=== PATIENT | female | born 1970 | race Caucasian/White ===

== ENCOUNTER 2023-07-09 07:05 | Observation (INO) ==
--- NOTE | 2023-07-07 12:51 | Anesthesiology Consultation ---
Date of Service July 07, 2023 Assessment & Plan (1) Encounter for pre-operative examination: Chart Review Chart Review: Acceptable Risk for Surgery and Patient NOT seen in Pre Admission Testing Consults Requested none History Surgery Operation Date: 07/09/23 10:35 Proposed Procedures p Total Laparoscopic Hysterectomy, Bilateral Salpingectomy, Possible Bilateral Oophorectomy, Cystoscopy, Possible Laparotomy - Sher Laird MD Height/Weight Height: 5 ft 5 in Weight: 83.915 kg Allergies Allergy/AdvReac Type Severity Reaction Status Date / Time Bactrim Allergy Intermediate rash Verified 01/08/16 14:20 latex Allergy Intermediate Rash Verified 07/05/23 12:20 sulfamethoxazole [Bactrim] Allergy Intermediate rash Verified 07/05/23 12:20 trimethoprim [Bactrim] Allergy Intermediate rash Verified 07/05/23 12:20 avocado Allergy Unknown NAUSEA Verified 07/05/23 12:20 adhesive AdvReac Mild TAPE - Verified 07/05/23 12:20 REDNESS Medications Home Medications Medication Instructions Recorded Confirmed Last Taken multivitamin 1 tab PO QAM 07/05/23 07/05/23 Unknown propranolol 10 mg tablet 10 mg PO QAM 07/05/23 07/05/23 Unknown semaglutide 0.25 mg or 0.5 mg (2 0.5 mg subcut WK 07/05/23 07/05/23 Unknown mg/3 mL) subcutaneous pen injector (Ozempic) Past Medical History Medical History Overweight Ozempic for this not DM Perimenopausal propranolol for this SVT (supraventricular tachycardia) had ablation in 2017 Past Surgical History Surgical History History of appendectomy History of cardiac radiofrequency ablation 2017 for SVT > DC'ed from cardio History of colonoscopy History of endometrial ablation History of tooth extraction with dental implant Social History Smoking Status: Never smoker Do You Dip or Chew Tobacco: No Hx Alcohol Use: Yes Alcohol type: beer, wine and hard liquor alcohol intake frequency: a few times a month Hx Substance Use: No substance use type: does not use Testing Electrocardiogram Date: 06/11/23 Findings: + NSR @ Echocardiogram Date: 12/15/22 EF: 60-65 LV Function: normal
[~2023-07-09 07:05] MED LIST: LACTATED RINGER'S 1,000 ML IV SCH; LR 15ML/HR IV SCH; ceFAZolin 2000MG 2,000 MG/15 ML SYR IV SCH
[2023-07-09] MEDS ORDERED: HYDROmorphone INJ 2 MG/ML SYR/VIAL IV PRN (07:44)
[2023-07-09] MEDS ORDERED: ONDANSETRON INJ 2 MG/ML 2 ML VIAL IV PRN ×2 (07:44→11:20)
[2023-07-09] MEDS ORDERED: ACETAMINOPHEN 500 MG TAB PO STA (07:44)
[2023-07-09] MEDS ORDERED: SCOPOLAMINE 1 MG TDSY TD STA (07:44)
[2023-07-09] MEDS ORDERED: ePHEDrine sulfate 50 MG/ML AMP IV PRN (07:44)
[2023-07-09] MEDS ORDERED: ATROPINE SULFATE 0.1 MG/ML 10ML SYR IV PRN (07:44)
[2023-07-09] MEDS ORDERED: fentaNYL citrate PF 100 MCG/2 ML VIAL ONE (07:49)
[2023-07-09] MEDS ORDERED: MIDAZOLAM HCL 1 MG/ML 2ML VIAL ONE (08:07)
--- NOTE | 2023-07-09 08:15 | History & Physical Bridge Note ---
Date of Service July 09, 2023 History & Physical Bridge Note I have examined the patient, reviewed the History & Physical and in the interval since the performance of the History & Physical I have noted the following changes of clinical significance: no changes noted
[2023-07-09] MEDS ORDERED: BUPIVACAINE/EPINEPHRINE 0.5% MPF 1:200,000 30 ML VIAL ONE (08:20)
[2023-07-09] MEDS ORDERED: DEXAMETHASONE SOD INJ 4 MG/ML VIAL ONE (09:20)
[2023-07-09] MEDS ORDERED: KETOROLAC 30 MG/ML VIAL ONE (09:20)
[2023-07-09] MEDS ORDERED: ONDANSETRON INJ 2 MG/ML 2 ML VIAL ONE (09:20)
[2023-07-09] MEDS ORDERED: ROCURONIUM BROMIDE 10 MG/ML 5 ML VIAL IV ONE (09:20)
[2023-07-09] MEDS ORDERED: PROPOFOL IV EMULSION 10 MG/ML 20 ML VIAL IV ONE (09:20)
[2023-07-09] MEDS ORDERED: SUGAMMADEX SODIUM 200 MG/2 ML VIAL IV ONE (09:21)
[2023-07-09] MEDS ORDERED: FLOSEAL HEMOSTATIC MATRIX 10ML TOP ONE (09:28)
[2023-07-09] MEDS ORDERED: HYDROmorphone INJ 2 MG/ML SYR/VIAL ONE (09:49)
[2023-07-09] MEDS ORDERED: ZOLPIDEM TARTRATE 5 MG TAB PO PRN (11:20)
[2023-07-09] MEDS ORDERED: MAGNESIUM HYDROXIDE SUSP 30 ML UDC PO PRN (11:20)
[2023-07-09] MEDS ORDERED: LACTATED RINGER'S 1,000 ML IV SCH (11:30)
--- NOTE | 2023-07-09 11:33 | Operative Report ---
[facility] Post Operative Report Pre & Post Diagnosis Operation Date: 07/09/23 08:25 Pre-Op Diagnosis: Menorrhagia, Failed Endometrial Ablation, Fibroid Post-Op Diagnosis: Menorrhagia, Failed Endometrial Ablation, Fibroid I identified the patient and participated in the time-out.: Yes Procedure Operation Date: 07/09/23 08:25 Actual Procedures p Total Laparoscopic Hysterectomy, Bilateral Salpingectomy, Cystoscopy(Not Applicable) - Sher Laird MD Surgeon Sher Laird MD Watch Manufacturing Supervisor Isaac zafar Estimated Blood Loss 10 Findings Consistent with Post-Op Diagnosis 12 week size fibroid uterus endometrial implants in cul de sac Nml left ovary and tube Rt ovarian has clear filled cyst Fluids IVF:1600 Urine: 200 EBL; 10 Specimens uterus and cervix left an right Fallopian tubes Drains none Anesthesia Type General Complications none Indications Fibroid uterus menorrhagia failed endometrial ablation Description of Procedure FINDINGS: DESCRIPTION OF PROCEDURE: The patient was prepped and draped in normal sterile fashion in the dorsal lithotomy position. Lopez catheter was placed without difficulty. An Micrima uterine manipulator was placed in the uterus to help with colpotomy. Attention was paid to the abdominal part of the procedure where a supraumbilical incision was made and carried down to the fascia. Mohit was used to grab the fascia. Veress needle was introduced into the abdomen at a 45-degree angle while tenting up the abdomen. Intra-abdominal placement was confirmed with a water-filled syringe. A water drop and suction test was performed. The abdomen was insufflated with CO2 gas. The Veress needle was removed and a 5 mm non bladed trocar was attached to a laparoscope was introduced into the abdomen under direct visualization. This was a non bladed trocar. Once inside the abdomen, laparoscope was repositioned. Inspection of the abdomen shows the fin dings as dictated above. Three more accessory ports were placed, two 5 mm accessory ports were placed in the lower abdomen on the contralateral side, in addition, an 11 mm trocar was placed on the left upper quadrant. General inspection of the abdomen and pelvis was performed as dictated above. . . Left and right fallopian tubes, the ureters, uterosacrals, bowels, appendix were examined and identified. LigaSure was passed through the left accessory port. The fallopian tube was identified and grabbed 4 cm from the cornua of the uterus with the LigaSure and transected. This was followed by opening of the left anterior leaf of the broad ligament. This allowed for fenestration of the posterior left broad ligament. The mid-section of the left fallopian tube, utero-ovarian and meso-ovarian pedicles were transected as well. Same procedure was performed on the contralateral side. The anterior broad ligament dissection was carried to the mid-section of the vesicouterine peritoneum over the bladder using the Harmonic scalpel. Same procedure was carried out on the contralateral side.The Myoma screw is used for retraction. posterior broad ligament peritoneum was carefully dissected also from both sides over the uterosacral arch in order to displace the ureters laterally. Using traction and countertraction, the [place] retractor and irrigation probe was used to further dissect the bladder off the lower segment of the uterus. Bladder pillars and pubovesical fascia was dissected as well. Harmonic scalpel was used to obtain hemostasis where needed. Uterine manipulator was now palpable over the vaginal tissue. The right uterine pedicles were skeletonized and coagulated with the LigaSure. Good hemostasis was obtained. Same procedure was performed on the contralateral side. Cardinal ligaments were transected on both sides. Once good hemostasis was obtained, colpotomy was performed using the LigaSure hook from both sides. Uterus was removed through the vagina while still attached to the uterine manipulator. The bulb was attached to the uterine manipulator was reinserted into the vagina to establish pneumoperitoneum. With a grasper, the remaining section of the left ovary and tube were positioned anteromedially. Both fallopian tubes was removed. Same procedure was performed on both sides. EndoStitch closure device was passed through the 11 mm port on the left. Using the [place] grasper for traction, colpotomy closure was performed. The uterosacral ligaments incorporated into the closure in order to decrease the risk of prolapse. Lapro ties were used with the EndoStitch. The 11-mm trocar site was closed with a Dash-Correa under direct visualization. Attention was paid to the cystoscopy part of the procedure where a cystoscope was introduced into the bladder. There are no sutures seen in the bladder. There were no gross blood seen in the bladder as well. The bubble sign is noted showing the bladder was a close cavity. Both ureters were seen and there was efflux from both uterus. The skin incisions are closed with Dermabond, except for the 11-mm trocar site, which was closed with 4-0 Monocryl. The patient was returned to recovery in stable condition. Inspection of the vagina shows the vaginal cuff was intact. All instruments were removed from the vagina and the bladder and accounted for x2. Watch Manufacturing Supervisor was necessary for retraction and manipulation of instruments in order to provide for a safe operation I attest to the content of the Intraoperative Record and any orders documented therein. Any exceptions are noted below.
--- NOTE | 2023-07-09 12:43 | Anesthesiology Progress Note ---
Date of Service July 09, 2023 Anesthesia Post Procedure Vital Signs Vital Signs: Temp Pulse Pulse Resp BP BP Pulse Ox 07/09/23 11:45 78 14 130/79 98 07/09/23 11:35 36.3 C L 80 14 129/57 L 99 07/09/23 11:25 90 14 128/68 96 07/09/23 11:15 84 14 117/73 100 07/09/23 11:05 36.4 C L 91 H 14 115/81 100 07/09/23 07:26 36.6 C 94 H 20 143/80 H 97 O2 Del Method O2 Flow Rate 07/09/23 11:45 Nasal Cannula 2 07/09/23 11:35 Nasal Cannula 2 07/09/23 11:25 Nasal Cannula 2 07/09/23 11:15 Oxymask 6 07/09/23 11:05 Oxymask 6 07/09/23 07:26 Room Air Transfer of Care Handoff Completed per policy Notes Mental Status: alert / awake / arousable and participated in evaluation Nausea / Vomiting: adequately controlled Pain: adequately controlled Airway Patency, RR, SpO2: stable & adequate BP & HR: stable & adequate Hydration State: stable & adequate Anesthetic Complications: no major complications apparent and Pt Satisfied with anesthetic care
[2023-07-09] MEDS: SIMETHICONE 80 MG CHEW PO PRN (13:10)
[2023-07-09] MEDS: oxyCODONE/ACETAMINOPHEN 5mg/325mg TAB PO PRN ×2 (13:10→19:47)
[2023-07-09] MEDS: CHECK SCOPOLAMINE PATCH PLACEMENT SCH (18:36)
[2023-07-09] MEDS: IBUPROFEN 600 MG TAB PO PRN (19:45)
[2023-07-09] MEDS: DOCUSATE SODIUM 100 MG CAP PO SCH (21:00)
[2023-07-10] MEDS: IBUPROFEN 600 MG TAB PO PRN ×3 (00:11→09:17)
[2023-07-10] MEDS: oxyCODONE/ACETAMINOPHEN 5mg/325mg TAB PO PRN ×3 (00:11→09:17)
[2023-07-10] MEDS: SIMETHICONE 80 MG CHEW PO PRN (06:42)
[2023-07-10 07:23] LABS: Basophils # (auto) 0.01 K/uL (0-0.2); Basophils % (auto) 0.1 %; Eosinophils # (auto) 0.01 K/uL (0-0.50); Eosinophils % (auto) 0.1 %; Hematocrit (blood only) 37.1 % (37.0-47.0); Hemoglobin 12.8 g/dl (12.0-16.0); Immature Granulocytes # (auto) 0.04 K/uL (0.01-0.20); Immature Granulocytes % (auto) 0.4 %; Lymphocytes # (auto) 2.07 K/uL (1.2-3.4); Mean Corpuscular Hemoglobin 31.8 pg (25.0-34.0); Mean Corpuscular Hgb Conc 34.5 g/dL (32.0-36.0); Mean Corpuscular Volume 92.3 fL (80.0-100.0); Mean Platelet Volume 8.8 fL (9.4-12.4); Monocytes # (auto) 0.75 K/uL (0.11-0.59); Monocytes % (auto) 6.9 %; Neutrophils # (auto) 8.04 K/uL (1.40-6.50); Neutrophils % (auto) 73.5 %; Platelet Count 226 K/uL (130-400); RDW Coefficient of Variation 11.9 % (11.5-14.5); RDW Standard Deviation 40.2 fL (36.4-46.3); Red Blood Count 4.02 M/uL (4.20-5.40); White Blood Count 10.92 K/ul (4.8-10.8)
[2023-07-10 07:24] LABS: BUN Creatinine Ratio 16.5 (10-20); Calcium 8.8 mg/dl (8.6-10.3); Creatinine Clr Calc Pharmacy 89.1 ml/min; Est GFR (African American) 99.8 ml/min; Est GFR (Non-African American) 86.1 ml/min
[2023-07-10] MEDS: CHECK SCOPOLAMINE PATCH PLACEMENT SCH ×2 (08:44)
[2023-07-10] MEDS: DOCUSATE SODIUM 100 MG CAP PO SCH (08:44)
--- NOTE | 2023-07-10 08:59 | Obstetrical Progress Note ---
Date of Service July 10, 2023 Assessment & Plan (1) S/P laparoscopic hysterectomy: TLH pt doing well dsich home with instructions Subjective Review of Systems All systems reviewed & are unremarkable except as noted in HPI & below Physical Exam Constitutional WD/WN, vitals as above Eyes PERRL, conjunctivae normal, anicteric sclerae ENMT external ear and nose normal, oropharynx normal Neck trachea midline, no thyromegaly Respiratory normal respiratory effort, lungs clear to auscultation Cardiovascular RRR, no murmur, no edema Chest (Breasts) normal inspection/palpation of breasts Gastrointestinal (Abdomen) normal bowel sounds, soft, nontender, no hepatosplenomegaly Musculoskeletal no cyanosis or clubbing, extremities motor strength 5/5 Skin + incision (Incision clean,dry and intact) Neurologic patellar DTR's 2+ bilat, sensation intact Psychiatric A+Ox3, euthymic affect Genitourinary no vaginal lesions, no adnexal mass Lymphatic no cervical or axillary lymphadenopathy Results & Data Vital Signs (Past 12 Hours) Vital Signs Temp Pulse Pulse Resp BP Pulse Ox O2 Del Method 07/10/23 08:11 36.6 C 78 18 111/64 97 07/10/23 07:30 36.6 C 78 18 111/64 Room Air 07/10/23 04:25 36.6 C 99 H 18 121/86 97 Room Air 07/10/23 00:20 36.8 C 96 H 18 116/67 97 Room Air
[2023-07-10] MEDS ORDERED: PROPRANOLOL HCL 10 MG TAB PO SCH (09:00)
--- NOTE | 2023-07-10 09:07 | Discharge Summary ---
Date of Service July 10, 2023 Admission HPI Per Admitting Provider Pt underwent total laparoscopic hysterectomy. Surgery was unremarkable details of surgery is in surgical note Discharge Data Procedures Performed Operation Date: 07/09/23 08:25 Actual Procedures p Total Laparoscopic Hysterectomy, Bilateral Salpingectomy, (Not Applicable) - Sher Laird MD s Cystoscopy(Not Applicable) - Sher Laird MD Hospital Course (1) S/P laparoscopic hysterectomy: Discharge Instructions Post op course was unremarkable and pt is discharges home in stable condition. Discharge instructions including medications,diet, activity and follow up appointments are reviewed with pt.
== END 2023-07-10 09:30 | disposition home or self-care (01) ==
LOC: 4E1 07:05 → ASU 07:05